=== PATIENT | male | born 1960 | race Native Hawaiian/Other Pacific Islander ===

== ENCOUNTER 2017-03-07 09:10 | Outpatient (CLI) | payer OTHER, BC ==
[~2017-03-07 09:10] MED LIST: FOLI1TAB26 PO; NEUPRO3 MG/24 HR TD; PLAQUENIL200 MG PO; PREVACID15 M1 PO; TREXALL10 MG PO
[2017-03-07 09:53] LABS: PLATELET COUNT 200 K/uL (142-355)
[2017-03-07 10:15] LABS: POTASSIUM 4.2 mmol/L (3.6-5.2)
== END 2017-03-07 19:07 | disposition home or self-care (01) ==
LOC: LABW 09:10
PROVIDERS: Internal Medicine Rheumatology
DX: G47.62 Sleep related leg cramps (principal); E78.4 Other hyperlipidemia; M11.841 Other specified crystal arthropathies, right hand; G25.81 Restless legs syndrome; Z79.899 Other long term (current) drug therapy; Z51.81 Encounter for therapeutic drug level monitoring; R07.89 Other chest pain
CPT/HCPCS: 36415; 80053; 80061; 82550; 84443; 85027; 86140

== ENCOUNTER 2017-04-18 10:06 | Outpatient (CLI) | payer OTHER, BC | END 2017-04-18 11:00 | disposition home or self-care (01) | LOC: LABW 10:06 | DX: K64.0 First degree hemorrhoids (principal) | CPT/HCPCS: 82272 ==

== ENCOUNTER 2017-06-27 12:59 | Outpatient (CLI) | payer OTHER, BC ==
[2017-06-27 13:40] LABS: PLATELET COUNT 173 K/uL (142-355)
[2017-06-27 13:46] LABS: POTASSIUM 4.9 mmol/L (3.6-5.2)
== END 2017-06-27 19:15 | disposition home or self-care (01) ==
LOC: LABW 12:59
PROVIDERS: Internal Medicine Rheumatology
DX: L40.59 Other psoriatic arthropathy (principal); Z79.899 Other long term (current) drug therapy; Z51.81 Encounter for therapeutic drug level monitoring
CPT/HCPCS: 36415; 80053; 85027; 86140

== ENCOUNTER 2017-09-22 08:15 | Outpatient (CLI) | payer OTHER, BC ==
[2017-09-22 09:22] LABS: POTASSIUM 3.8 mmol/L (3.6-5.2)
[2017-09-22 09:46] LABS: PLATELET COUNT 165 K/uL (142-355)
== END 2017-09-22 19:29 | disposition home or self-care (01) ==
LOC: LABW 08:15
PROVIDERS: Internal Medicine Rheumatology
DX: L40.59 Other psoriatic arthropathy (principal); Z79.899 Other long term (current) drug therapy; Z51.81 Encounter for therapeutic drug level monitoring
CPT/HCPCS: 36415; 80053; 85027; 86140

== ENCOUNTER 2017-12-09 08:44 | Outpatient (CLI) | payer OTHER, BC | END 2017-12-09 19:04 | disposition home or self-care (01) | LOC: LABW 08:44 | DX: K64.0 First degree hemorrhoids (principal) | CPT/HCPCS: 82272 ==

== ENCOUNTER 2018-03-20 09:11 | Outpatient (CLI) | payer OTHER, BC | END 2018-03-20 22:24 | disposition home or self-care (01) | LOC: LABW 09:11 | DX: C10.2 Malignant neoplasm of lateral wall of oropharynx (principal); R94.6 Abnormal results of thyroid function studies | CPT/HCPCS: 36415; 84443 ==

== ENCOUNTER 2018-09-01 18:37 | Observation (INO) | payer OTHER, BC ==
[2018-09-01] VITALS (7 sets, daily range): BP systolic 112–150; BP diastolic 71–92; TEMP 97.7–98.7; Ht 172.7 cm; Wt 93.2 kg
[~2018-09-01] VITALS: Ht 172.7 cm; Wt 93.2 kg
[2018-09-01 19:04] LABS: PLATELET COUNT 179 K/uL (142-355)
[2018-09-01 19:18] LABS: POTASSIUM 3.7 mmol/L (3.6-5.2); SODIUM 141 mmol/L (136-145)
[2018-09-01 22:08] LABS: PARTIAL THROMBOPLASTIN TIME 28.5 SECONDS (24.5-33.6)
[2018-09-02] VITALS: BP 115/69; TEMP 98
[2018-09-02 04:00] VITALS: BP 96/58; TEMP 98.3
[2018-09-02 08:00] VITALS: BP 125/85; TEMP 97.6
[2018-09-02 12:00] VITALS: BP 110/65; TEMP 98.2
--- NOTE | 2018-09-02 13:35 | NUR ---
IV TO LEFT AC D/C'D PER DOCTORS ORDERS. INSTRUCTED PT THAT DR. FAGAN' OFFICE WILL CONTACT HIM WITH A FOLLOW UP APPOINTMENT. PATIENT IS TO TAKE ALL HOME MEDICATIONS PREVIOUSLY. PT IS TO FOLLOW UP WITH PCP IN 5-7 DAYS. ALL DISCHARGE INSTRUCTIONS GIVEN. PT AND SPOUSE UNDERSTAND ALL INSTRUCTIONS. PT LEFT VIA WC. NAD NOTED.
== END 2018-09-02 13:58 | disposition home or self-care (01) ==
LOC: ED 18:37 → MED/SURG 20:20
PROVIDERS: ADMIT Family Medicine
DX: R07.89 Other chest pain (principal)
CPT/HCPCS: 36415; 80053; 81000; 82550; 84484; 85027; 85610; 85730; 93005; 94760; 96372; 99220; 99283; G0378; J1650

== ENCOUNTER 2018-12-29 13:38 | Outpatient (CLI) | payer OTHER, BC ==
[2018-12-29 14:14] LABS: PLATELET COUNT 229 K/uL (142-355)
[2018-12-29 14:29] LABS: POTASSIUM 4.1 mmol/L (3.6-5.2)
== END 2018-12-29 20:46 | disposition home or self-care (01) ==
LOC: LABW 13:38
PROVIDERS: Internal Medicine Rheumatology
DX: Z79.899 Other long term (current) drug therapy (principal); M06.4 Inflammatory polyarthropathy
CPT/HCPCS: 36415; 80053; 85027; 86140

== ENCOUNTER 2019-08-30 09:21 | Outpatient (CLI) | payer OTHER, BC | END 2019-08-30 20:30 | disposition home or self-care (01) | LOC: LABW 09:21 | DX: K64.0 First degree hemorrhoids (principal) | CPT/HCPCS: 82272 ==

== ENCOUNTER 2019-10-15 08:52 | Outpatient (CLI) | payer OTHER, BC | END 2019-10-15 19:07 | disposition home or self-care (01) | LOC: LABW 08:52 | DX: C10.2 Malignant neoplasm of lateral wall of oropharynx (principal); Z79.899 Other long term (current) drug therapy | CPT/HCPCS: 36415; 84443 ==

== ENCOUNTER 2020-02-07 09:18 | Outpatient (CLI) | payer OTHER, BC ==
[2020-02-07 09:32] LABS: PLATELET COUNT 180 K/uL (142-355)
[2020-02-07 09:44] LABS: POTASSIUM 4.8 mmol/L (3.6-5.2)
== END 2020-02-07 19:14 | disposition home or self-care (01) ==
LOC: LABW 09:18
PROVIDERS: Internal Medicine Rheumatology
DX: G25.81 Restless legs syndrome (principal); L40.59 Other psoriatic arthropathy; Z79.899 Other long term (current) drug therapy; R05 Cough
CPT/HCPCS: 36415; 80053; 85027; 86140

== ENCOUNTER 2020-08-24 08:14 | Outpatient (CLI) | payer OTHER, BC ==
[2020-08-24 09:13] LABS: POTASSIUM 4.8 mmol/L (3.6-5.2)
[2020-08-24 09:57] LABS: PLATELET COUNT 158 K/uL (142-355)
== END 2020-08-24 23:24 | disposition home or self-care (01) ==
LOC: LABW 08:14
PROVIDERS: Internal Medicine Rheumatology
DX: G25.81 Restless legs syndrome (principal); L40.59 Other psoriatic arthropathy; Z79.899 Other long term (current) drug therapy; R05 Cough
CPT/HCPCS: 36415; 80053; 85027; 86140

== ENCOUNTER 2020-08-28 08:18 | Outpatient (CLI) | payer OTHER, BC ==
[2020-08-28 08:48] LABS: POTASSIUM 4.6 mmol/L (3.6-5.2)
[2020-08-28 09:49] LABS: PLATELET COUNT 149 K/uL (142-355)
== END 2020-08-28 23:28 | disposition home or self-care (01) ==
LOC: LABW 08:18
PROVIDERS: Internal Medicine Hematology & Oncology
DX: C01 Malignant neoplasm of base of tongue (principal); Z85.810 Personal history of malignant neoplasm of tongue
CPT/HCPCS: 36415; 80053; 85027

== ENCOUNTER 2020-11-13 13:17 | Outpatient (CLI) | payer OTHER, BC | END 2020-11-13 21:40 | disposition home or self-care (01) | LOC: RAD 13:17 | PROVIDERS: ATTEND Otolaryngology Otolaryngology/Facial Plastic Surgery | DX: C10.2 Malignant neoplasm of lateral wall of oropharynx (principal); R05 Cough ==

== ENCOUNTER 2021-05-24 12:21 | Outpatient (CLI) | payer OTHER, BC | END 2021-05-24 19:00 | disposition home or self-care (01) | LOC: RAD 12:21 | PROVIDERS: ATTEND Internal Medicine | DX: R05 Cough (principal) ==

== ENCOUNTER 2021-06-14 11:51 | Outpatient (CLI) | payer OTHER, BC | END 2021-06-14 19:10 | disposition home or self-care (01) | LOC: US 11:51 | PROVIDERS: ATTEND Internal Medicine | DX: I73.9 Peripheral vascular disease, unspecified (principal) ==

== ENCOUNTER 2021-08-10 07:42 | Outpatient (CLI) | payer OTHER, BC | END 2021-08-10 19:01 | disposition home or self-care (01) | LOC: US 07:42 | PROVIDERS: ATTEND Internal Medicine | DX: N18.31 Chronic kidney disease, stage 3a (principal) ==

== ENCOUNTER 2021-11-08 07:33 | Outpatient (CLI) | payer OTHER, BC | END 2021-11-08 18:48 | disposition home or self-care (01) | LOC: MRI 07:33 | PROVIDERS: ATTEND Orthopaedic Surgery | DX: M54.59 Other low back pain (principal) ==

== ENCOUNTER 2022-04-11 13:08 | Outpatient (CLI) | payer OTHER, BC | END 2022-04-11 19:04 | disposition home or self-care (01) | LOC: MRI 13:08 | PROVIDERS: ATTEND Orthopaedic Surgery | DX: M54.2 Cervicalgia (principal); M54.12 Radiculopathy, cervical region; M48.02 Spinal stenosis, cervical region ==

== ENCOUNTER 2022-10-23 08:45 | Outpatient (CLI) | payer OTHER, BC | END 2022-10-23 19:17 | disposition home or self-care (01) | LOC: RAD 08:45 | PROVIDERS: ATTEND Family Medicine | DX: M27.8 Other specified diseases of jaws (principal) ==

== ENCOUNTER 2023-05-14 21:08 | Emergency (ER) | payer OTHER, BC ==
[~2023-05-14] VITALS: Ht 172.7 cm; Wt 90.7 kg
[2023-05-14 21:08] VITALS: BP 135/84; TEMP 98.8
== END 2023-05-14 22:00 | disposition home or self-care (01) ==
LOC: ED 21:08
DX: R33.9 Retention of urine, unspecified (principal); R10.30 Lower abdominal pain, unspecified
CPT/HCPCS: 99282

== ENCOUNTER 2023-07-03 16:59 | Emergency (ER) | payer OTHER, BC ==
[~2023-07-03] VITALS: Ht 172.7 cm; Wt 83.9 kg
[2023-07-03 18:06] VITALS: BP 115/68; TEMP 98
== END 2023-07-03 18:06 | disposition home or self-care (01) ==
LOC: ED 16:59
DX: N39.0 Urinary tract infection, site not specified (principal); N48.89 Other specified disorders of penis
CPT/HCPCS: 81000; 87086; 87088; 96365; 99284; J0696

== ENCOUNTER 2023-09-04 11:04 | Outpatient (CLI) | payer BC ==
[~2023-09-04 11:04] MED LIST changes: +HYDR200T3 PO; +METHO2.5 PO; -NEUPRO3 MG/24 HR TD; +NEUPRO3 MG/24 HR TOP; -PLAQUENIL200 MG PO; -TREXALL10 MG PO
[2023-09-05] MEDS ORDERED: FENT50DI TD (19:59)
[2023-09-05] MEDS ORDERED: HYDROMORPHONE HY4 MG PO (19:59)
[2023-09-05] MEDS ORDERED: ASPIRIN 81 LOW81 MG PO (20:00)
[2023-09-05] MEDS ORDERED: CARB25TA29 PO (20:00)
[2023-09-05] MEDS ORDERED: EUTHYROX75 MCG PO (20:00)
[2023-09-05] MEDS ORDERED: ONDANSETRON ODT PO (20:01)
[2023-09-05] MEDS ORDERED: OXYB5TAB56 PO (20:01)
[2023-09-05] MEDS ORDERED: GABA300C2 PO (20:01)
[2023-09-05] MEDS ORDERED: VENLAFAXINE75 M2 PO (20:02)
[2023-09-05] MEDS ORDERED: LIPITOR80 MG PO (20:02)
[2023-09-05] MEDS ORDERED: OMEP20CA PO (20:03)
[2023-09-05] MEDS ORDERED: CLON1TAB18 PO (20:04)
[2023-09-05] MEDS ORDERED: CIALIS20 MG PO (20:04)
[2023-09-05] MEDS ORDERED: CARV6.25 PO (20:04)
[2023-09-05] MEDS ORDERED: DQZATE100 MG PO (20:05)
[2023-09-05] MEDS ORDERED: MIRALAX MIX-IN17 GM PO (20:05)
[2023-09-05] MEDS ORDERED: HORIZANT300 MG PO (20:05)
== END 2023-09-04 19:13 | disposition home or self-care (01) ==
LOC: LABW 11:04
PROVIDERS: ATTEND Internal Medicine
DX: J40 Bronchitis, not specified as acute or chronic (principal)
CPT/HCPCS: 87070; 87077; 87186; 87205

== ENCOUNTER 2023-09-05 13:07 | Observation (INO) | payer BC ==
[~2023-09-05] VITALS: Ht 175.3 cm; Wt 79.1 kg
[2023-09-05] VITALS (7 sets, daily range): BP systolic 89–147; BP diastolic 52–76; TEMP 98–98.7; Ht 175.3 cm; Wt 79.1 kg
[2023-09-05 13:48] LABS: PLATELET COUNT 248 K/uL (142-355)
[2023-09-05 13:56] LABS: POTASSIUM 4.4 mmol/L (3.6-5.2)
[2023-09-05] MEDS ORDERED: HYDROMORPHONE HY4 MG PO (19:59)
[2023-09-05] MEDS ORDERED: FENT50DI TD (19:59)
[2023-09-05] MEDS ORDERED: EUTHYROX75 MCG PO (20:00)
[2023-09-05] MEDS ORDERED: CARB25TA29 PO (20:00)
[2023-09-05] MEDS ORDERED: ASPIRIN 81 LOW81 MG PO (20:00)
[2023-09-05] MEDS ORDERED: ONDANSETRON ODT PO (20:01)
[2023-09-05] MEDS ORDERED: OXYB5TAB56 PO (20:01)
[2023-09-05] MEDS ORDERED: GABA300C2 PO (20:01)
[2023-09-05] MEDS ORDERED: LIPITOR80 MG PO (20:02)
[2023-09-05] MEDS ORDERED: VENLAFAXINE75 M2 PO (20:02)
[2023-09-05] MEDS ORDERED: OMEP20CA PO (20:03)
[2023-09-05] MEDS ORDERED: CIALIS20 MG PO (20:04)
[2023-09-05] MEDS ORDERED: CLON1TAB18 PO (20:04)
[2023-09-05] MEDS ORDERED: CARV6.25 PO (20:04)
[2023-09-05] MEDS ORDERED: HORIZANT300 MG PO (20:05)
[2023-09-05] MEDS ORDERED: MIRALAX MIX-IN17 GM PO (20:05)
[2023-09-05] MEDS ORDERED: DQZATE100 MG PO (20:05)
[2023-09-06] VITALS: BP 112/72; TEMP 98.8
[2023-09-06 04:00] VITALS: BP 118/64; TEMP 98.8
[2023-09-06 08:00] VITALS: BP 109/62; TEMP 97.5
[2023-09-06 10:31] LABS: PLATELET COUNT 218 K/uL (142-355)
[2023-09-06 10:33] LABS: POTASSIUM 3.7 mmol/L (3.6-5.2)
[2023-09-06 12:05] VITALS: BP 107/51; BP 122/49; TEMP 98
[2023-09-06 16:00] VITALS: BP 147/74; TEMP 97.5
[2023-09-06 20:00] VITALS: BP 99/63; TEMP 97.7
[2023-09-07] VITALS: BP 108/71; TEMP 97.9
[2023-09-07 04:00] VITALS: BP 148/87; TEMP 98.8
[2023-09-07 05:04] LABS: PLATELET COUNT 243 K/uL (142-355)
[2023-09-07 05:17] LABS: POTASSIUM 3.7 mmol/L (3.6-5.2)
[2023-09-07 07:51] VITALS: BP 146/84; TEMP 99
[2023-09-07 11:57] VITALS: BP 134/78; TEMP 97.8
== END 2023-09-07 14:50 | disposition short-term general hospital (02) ==
LOC: ED 13:07 → MED/SURG 14:55
PROVIDERS: Family Medicine; ADMIT Internal Medicine; ATTEND Internal Medicine
DX: J90 Pleural effusion, not elsewhere classified (principal); J06.9 Acute upper respiratory infection, unspecified; B96.1 Klebsiella pneumoniae [K. pneumoniae] as the cause of diseases classified elsewhere; R06.02 Shortness of breath; R05.9 Cough, unspecified; C67.9 Malignant neoplasm of bladder, unspecified; C79.51 Secondary malignant neoplasm of bone; R91.8 Other nonspecific abnormal finding of lung field; N39.0 Urinary tract infection, site not specified; B96.29 Other Escherichia coli [E. coli] as the cause of diseases classified elsewhere; G20 Parkinson's disease; M13.88 Other specified arthritis, other site; E03.8 Other specified hypothyroidism; K21.9 Gastro-esophageal reflux disease without esophagitis; F41.8 Other specified anxiety disorders; Z87.891 Personal history of nicotine dependence
CPT/HCPCS: 36415; 36600; 80053; 81000; 82805; 83880; 84484; 85027; 87040; 87070; 87077; 87086; 87088; 87186; 87205; 87635; 93005; 94664; 94667; 94668; 94760; 96361; 96365; 96367; 96374; 96375; 99221; 99284; G0378; J0456; J0696; J1885; J1940; J2270; J2930; P9047; Q9963; U0003